=== PATIENT | female | born 1965 | race American Indian/Alaskan Native ===

== ENCOUNTER 2019-06-26 23:22 | Emergency (ER) | payer SELFPAY ==
[2019-06-26 23:27] VITALS: BP 172/118
--- NOTE | 2019-06-27 00:24 | XRay Report ---
LUMBAR SPINE, 2 VIEWS 06/26/2019 INDICATION / CLINICAL INFORMATION: post fall back pain. COMPARISON: None available. FINDINGS: Disc interspaces and bony alignment are normal. No fractures. SI joints appear normal. Signer Name: Donavon Shafer MD Signed: 06/27/2019 12:20 AM Workstation Name: [id number]
--- NOTE | 2019-06-27 00:25 | XRay Report ---
RIGHT FOOT, 3 VIEWS 06/26/2019 INDICATION / CLINICAL INFORMATION: post fall foot pain. COMPARISON: None available. FINDINGS: No fracture or dislocation. Signer Name: Donavon Shafer MD Signed: 06/27/2019 12:21 AM Workstation Name: [id number]
--- NOTE | 2019-06-27 00:28 | XRay Report ---
RIGHT ANKLE, 3 views 06/26/2019 INDICATION / CLINICAL INFORMATION: post fall ankle pain. COMPARISON: None available. FINDINGS: No fracture or dislocation. Signer Name: Donavon Shafer MD Signed: 06/27/2019 12:23 AM Workstation Name: [id number]
[2019-06-27] MEDS ORDERED: DECADRON IM ONE (01:42)
[2019-06-27] MEDS ORDERED: TORADOL IM ONE (01:42)
[2019-06-27] MEDS ORDERED: VALIUM PO ONE (01:43)
--- NOTE | 2019-06-27 01:48 | Emergency Department Report ---
ED Fall HPI - General Chief Complaint: Fall Stated Complaint: RT FOOT AND BACK INJURY DUE TO FALL Time Seen by Provider: 06/27/19 01:08 Source: patient Mode of arrival: Wheelchair - History of Present Illness Initial Comments: 54-year-old female presents to ED following fall 4 hours ago. Patient states she fell down 5 steps. Sustained injury to her back and right foot and ankle. MD Complaint: fall -: hour(s) (4) Fall From: standing When Fall Occurred: 4-[address] Fall Occurred: home Loss of Consciousness: none Prolonged Down Time?: no Symptoms Prior to Fall: none Location: back Location - Extremities: Right: Ankle Severity: severe Quality: aching Context: tripped/slipped Associated Symptoms: denies: neck pain, numbness, weakness, abdominal pain - Related Data Previous Rx's Medication Instructions Recorded Last Taken Type Naproxen [Naprosyn] 500 mg PO BID #20 tablet 06/27/19 Unknown Rx methOCARBAMOL [Robaxin TAB] 500 mg PO Q8HR PRN #20 tablet 06/27/19 Unknown Rx traMADol [Ultram] 50 mg PO Q6HR PRN #7 tablet 06/27/19 Unknown Rx Allergies Allergy/AdvReac Type Severity Reaction Status Date / Time No Known Allergies Allergy Unverified 06/26/19 23:24 ED Review of Systems ROS: Stated complaint: RT FOOT AND BACK INJURY DUE TO FALL Other details as noted in HPI Comment: All other systems reviewed and negative Musculoskeletal: as per HPI Neurological: denies: headache, weakness, numbness, paresthesias ED Past Medical Hx - Past Medical History Previous Medical History?: No - Surgical History Past Surgical History?: Yes Additional Surgical History: c-sec, breast biopsy - Social History Smoking Status: Never Smoker - Medications Home Medications: Home Medications Medication Instructions Recorded Confirmed Last Taken Type Naproxen [Naprosyn] 500 mg PO BID #20 tablet 06/27/19 Unknown Rx methOCARBAMOL [Robaxin TAB] 500 mg PO Q8HR PRN #20 tablet 06/27/19 Unknown Rx traMADol [Ultram] 50 mg PO Q6HR PRN #7 tablet 06/27/19 Unknown Rx ED Physical Exam - General Limitations: No Limitations General appearance: alert, in no apparent distress, other (appears uncomfortable) - Head Head exam: Present: atraumatic, normocephalic - Eye Eye exam: Present: normal appearance - ENT ENT exam: Present: mucous membranes moist - Neck Neck exam: Present: normal inspection - Respiratory Respiratory exam: Present: normal lung sounds bilaterally. Absent: respiratory distress - Cardiovascular Cardiovascular Exam: Present: regular rate, normal rhythm - GI/Abdominal GI/Abdominal exam: Present: soft. Absent: distended, tenderness - Extremities Exam Extremities exam: Present: tenderness (tenderness to right lateral ankle, mild swelling present, no deformity noted) - Back Exam Back exam: Present: paraspinal tenderness (right lower lumbar tenderness present on exam). Absent: vertebral tenderness - Neurological Exam Neurological exam: Present: alert, oriented X3. Absent: motor sensory deficit - Psychiatric Psychiatric exam: Present: normal affect, normal mood - Skin Skin exam: Present: warm, dry, intact, normal color ED Course Vital Signs 06/26/19 23:24 Temperature 98 F Pulse Rate 84 Respiratory 18 Rate Blood Pressure 172/118 O2 Sat by Pulse 99 Oximetry ED Medical Decision Making - Radiology Data Radiology results: report reviewed, image reviewed - Medical Decision Making 54-year-old female status post fall down 5 stairs. X-rays of back, right foot and ankle are all negative for any acute abnormalities. Chin given Toradol, Decadron, Valium for her back pain. She reports much improvement following medication administration. Feels okay for discharge home. Return precautions given. Outpatient follow-up advised. - Differential Diagnosis fracture, sprain, herniated disk Critical care attestation.: If time is entered above; I have spent that time in minutes in the direct care of this critically ill patient, excluding procedure time. ED Disposition Clinical Impression: Right ankle sprain, Contusion of lower back, Acute myofascial strain of lumbar region Disposition: DC- TO HOME OR SELFCARE Is pt being admited?: No Condition: Stable Instructions: Ankle Sprain (ED), Muscle Strain (ED), Contusion in Adults (ED) Prescriptions: Naproxen [Naprosyn] 500 mg PO BID #20 tablet methOCARBAMOL [Robaxin TAB] 500 mg PO Q8HR PRN #20 tablet PRN Reason: Muscle Spasm traMADol [Ultram] 50 mg PO Q6HR PRN #7 tablet PRN Reason: Pain Referrals: JAS HERNADEZ MD [Primary Care Provider] - 3-5 Days JV BLAS MD [Staff Physician] - 3-5 Days Time of Disposition: 03:11
== END 2019-06-27 03:15 | disposition home or self-care (01) ==
LOC: ED 23:22
DX: S93.401A Sprain of unspecified ligament of right ankle, initial encounter (principal); S30.0XXA Contusion of lower back and pelvis, initial encounter; S39.012A Strain of muscle, fascia and tendon of lower back, initial encounter; Z79.899 Other long term (current) drug therapy; W10.8XXA Fall (on) (from) other stairs and steps, initial encounter; Y93.89 Activity, other specified; Y92.89 Other specified places as the place of occurrence of the external cause; Y99.8 Other external cause status
CPT/HCPCS: 72100; 73610; 73630; 96372; 99283; J1100; J1885